=== PATIENT | female | born 1985 | race Caucasian/White ===

== ENCOUNTER 2020-09-26 13:14 | Emergency (ER) | payer OTHER, SELFPAY ==
[2020-09-26 13:33] VITALS: BP 108/75; PULSE 100; RESP 16; TEMP 37.3; O2SAT 99
--- NOTE | 2020-09-26 14:38 | ED.NAVMDI ---
HPI - Nausea/Vomiting/Diarrhea General Chief complaint: Nausea/Vomiting/Diarrhea Stated complaint: abd pain Time Seen by Provider: 09/26/20 14:18 Source: patient and RN notes reviewed Mode of arrival: ambulatory Limitations: no limitations History of Present Illness HPI Narrative: Patient presents today complaining of nausea, vomiting, diarrhea since 11:00 last night. Reports she vomited 7 times between 2300 and 3 AM. Patient has had multiple episodes of watery diarrhea as well. She had to salting crackers and water at 1230 this afternoon and has been able to keep them down. Denies any abdominal pain. States she is concerned she had some milk yesterday as well as some banana bread she later noted to have mold on it, so she does not know if she has a virus or food poisoning. MD elicited complaint: nausea, vomiting and diarrhea Related Data Home Medications Medication Instructions Recorded Confirmed labetalol 200 mg PO DAILY 09/26/20 09/26/20 levothyroxine [Synthroid] 112 mcg PO DAILY 09/26/20 09/26/20 sertraline 09/26/20 Allergies Allergy/AdvReac Type Severity Reaction Status Date / Time No Known Allergies Allergy Verified 09/26/20 13:47 Review of Systems Review of Systems: CONSTITUTIONAL: Denies body aches, fever, chills, or sweats. EYES: Denies visual changes, redness, or discharge. ENT: Denies rhinorrhea, congestion, sore throat, or otalgia. CARDIOVASCULAR: Denies chest pain, palpitations, or edema. RESPIRATORY: Denies cough or dyspnea. GASTROINTESTINAL: Denies abdominal pain. + Nausea, vomiting, diarrhea GENITOURINARY: Denies dysuria or hematuria. SKIN: Denies rash, itching, or wounds. MUSCULOSKELETAL: Denies back pain, joint pain, or myalgia. NEUROLOGIC: Denies headache, numbness, tingling, or weakness. PSYCH: Denies depression or anxiety. [facility] Social History Social History Gender identity (if verbalized by the patient): Female Comments At time of signature, I have reviewed and agree with nursing past medical, surgical, social and family history unless otherwise noted. Please see nursing chart for further information. There is no relevant family history pertinent to the presenting complaint Exam Narrative: GENERAL: Well-appearing, well-nourished, and in no acute distress. HEAD: Normocephalic, atraumatic. EYES: EOMI. No redness or drainage. Conjunctivae normal. ENT: Mucous membranes pink and moist. NECK: Normal AROM. CHEST: No respiratory distress. Clear to auscultation. HEART: Regular rate and rhythm. No murmur appreciated. Normal peripheral pulses. ABDOMEN: Soft, nontender, nondistended, normal active bowel sounds. MUSCULOSKELETAL: No bony tenderness. EXTREMITIES: Normal range of motion. No edema. SKIN: Warm, dry, no rash. Capillary refill normal. Normal skin turgor. NEURO: No focal deficits. Alert and oriented x3. Gait steady. PSYCH: Normal affect. No signs of depression or anxiety. Course Vital Signs Vital signs: Vital Signs Temperature 99.2 F 09/26/20 13:33 Pulse Rate 100 09/26/20 13:33 Respiratory Rate 16 09/26/20 13:33 Blood Pressure 108/75 09/26/20 13:33 Pulse Oximetry 99 09/26/20 13:33 Temperature 99.2 F 09/26/20 13:33 Pulse Rate 100 09/26/20 13:33 Respiratory Rate 16 09/26/20 13:33 Blood Pressure 108/75 09/26/20 13:33 Pulse Oximetry 99 09/26/20 13:33 Reviewed MDM - Nausea/Vomiting/Diarrhea Differential Diagnosis Differential diagnosis: Likely food poisoning, gastroenteritis and dehydration Critical Care Time Critical Care Time Critical Care Time: No Discharge Plan Discharge Clinical Impression: Nausea vomiting and diarrhea Patient Disposition: Home, Self-Care Condition: Stable Instructions: Acute Nausea and Vomiting (ED), Acute Diarrhea (ED) Additional Instructions: Please take the Zofran for nausea and vomiting. Drink fluids to have electroly
== END 2020-09-26 14:47 | disposition home or self-care (01) ==
PROVIDERS: Emergency Provider Nurse Practitioner; PCP Nurse Practitioner Adult Health
DX: R11.2 Nausea with vomiting, unspecified (principal); R19.7 Diarrhea, unspecified
CPT/HCPCS: 99203; G0463

== ENCOUNTER 2021-02-07 08:04 | Emergency (ER) | payer OTHER, SELFPAY ==
--- NOTE | 2021-02-07 08:14 | ED.URI ---
HPI - URI/Sore Throat General Chief Complaint: Upper Respiratory Infection Stated Complaint: sinus infection Time Seen by Provider: 02/07/21 08:22 Source: patient and RN notes reviewed Mode of arrival: ambulatory Limitations: no limitations History of Present Illness HPI Narrative: 35-year-old female presents with concern for close to 1 month history of nasal congestion, rhinorrhea, sinus pressure and drainage. She reports she was treated at the beginning of January for a sinus infection via teledoc with Augmentin. Reports she took the Augmentin as directed, symptoms improved but did not resolve. She reports she now has worsening right-sided sinus pressure, pain, facial swelling, swelling under her eye. Reports she is using Flonase, denies other [id number] intervention. She denies fever, body aches, chills, sweats MD elicited complaint: nasal congestion Related Data Home Medications Medication Instructions Recorded Confirmed labetalol 200 mg PO DAILY 09/26/20 02/07/21 levothyroxine [Synthroid] 112 mcg PO DAILY 09/26/20 02/07/21 Allergies Allergy/AdvReac Type Severity Reaction Status Date / Time No Known Allergies Allergy Verified 02/07/21 08:22 Review of Systems Review of Systems: CONSTITUTIONAL: Denies malaise, chills, sweats, or fever. EYES: Denies visual changes, redness, or discharge. ENT: Reports rhinorrhea, congestion, sinus pain, otalgia. Denies sore throat. CARDIOVASCULAR: Denies chest pain, palpitations, or edema. RESPIRATORY: Denies cough. Denies dyspnea. GASTROINTESTINAL: Denies abdominal pain, nausea, vomiting, diarrhea SKIN: Denies rash or itching. MUSCULOSKELETAL: Denies myalgia. NEUROLOGIC: Denies headache. All systems reviewed & are unremarkable except as noted in HPI and below PMFSH Social History Social History Gender identity (if verbalized by the patient): Female Comments At time of signature, agree with nursing past medical, surgical, social and family history. There is no relevant family history pertinent to the presenting complaint Exam Narrative: GENERAL: Well-appearing, well-nourished, and in no acute distress. HEAD: Normocephalic EYES: PERRLA, conjunctivae clear ENT: Nares clear, turbinates edematous and erythematous, sinus tenderness, yellow discharge. Mucous membranes moist. TM pearly pretty with dull light reflex bilaterally; no tragal tenderness. Oropharynx not erythematous without lesions. Tonsils not enlarged and without exudate, no drooling, no hoarseness, no trismus, uvula midline. NECK: Supple. No lymphadenopathy CHEST: Clear to auscultation, breath sounds equal. No wheezing, rhonchi, rales, or stridor. No respiratory distress, speaks in full sentences. HEART: Regular rate and rhythm. No murmur heard. SKIN: Warm, dry, no rash. NEURO: Alert and oriented x3. PSYCH: Normal mood and affect Course Course Emergency Course: Patient is aware of diagnosis, understands and agrees to treatment plan. Anticipatory guidance given. Patient agrees to follow-up as directed and is aware of reasons to seek care at the emergency department. Portions of this record may have been created with voice recognition software Vital Signs Vital signs: Reviewed. MDM - URI/Sore Throat MDM Narrative Medical decision making narrative: Differential diagnosis considered: Mata virus, strep pharyngitis, allergic rhinitis, upper respiratory tract infection, sinusitis, rhinosinusitis, nasopharyngitis. viral pharyngitis, otitis media, otitis externa, pneumonia, bronchitis, viral cough syndrome, viral syndrome, and influenza. Exam findings show no acute concerns or changes; patient is non-toxic appearing and is in no distress. Patient is appropriate for outpatient treatment and follow-up. Critical Care Time Critical Care Time Critical Care Time: No Discharge Plan Discharge Clinical Impression: Acute bacterial sinusitis Patient Disposit
[2021-02-07 08:15] VITALS: BP 136/90; PULSE 82; RESP 16; TEMP 36.3; O2SAT 99
[2021-02-07 08:17] VITALS: BP 136/90; PULSE 82; RESP 16; TEMP 36.3; O2SAT 99
== END 2021-02-07 08:35 | disposition home or self-care (01) ==
PROVIDERS: Emergency Provider Nurse Practitioner
DX: J01.90 Acute sinusitis, unspecified (principal); I10 Essential (primary) hypertension; E03.9 Hypothyroidism, unspecified
CPT/HCPCS: 99213; G0463

== ENCOUNTER 2021-03-24 08:04 | Emergency (ER) | payer OTHER, SELFPAY ==
--- NOTE | 2021-03-24 08:11 | ED.NAVMDI ---
HPI - Nausea/Vomiting/Diarrhea General Chief complaint: Nausea/Vomiting/Diarrhea Stated complaint: Throwing Up Time Seen by Provider: 03/24/21 08:15 Source: patient, RN notes reviewed and old records reviewed Mode of arrival: ambulatory Limitations: no limitations History of Present Illness HPI Narrative: 35-year-old female presents to the [facility] with complaints of nausea vomiting since midnight last night. Patient states I just need some IV fluids. denies any abdominal pain or chest pain. Denies fevers. Explained to patient we do not do IV fluids here, offered Zofran and home treatments or referred to ER. Patient stated she wanted to try Zofran and go home and rest. MD elicited complaint: nausea and vomiting Related Data Home Medications Medication Instructions Recorded Confirmed labetalol 200 mg PO DAILY 09/26/20 03/24/21 levothyroxine [Synthroid] 112 mcg PO DAILY 09/26/20 03/24/21 Allergies Allergy/AdvReac Type Severity Reaction Status Date / Time No Known Allergies Allergy Verified 02/07/21 08:22 Review of Systems Review of Systems: All systems reviewed & are unremarkable except as noted in HPI and below Constitutional: Constitutional: Reports no additional constitutional complaints, Denies chills and Denies fever(s) Eyes: Eyes: Reports no additional eye complaints ENT: Reports system reviewed and no additional complaints, except as documented Cardiovascular: Cardiovascular: Reports no additional cardiovascular complaints, Denies chest pain and Denies dyspnea Respiratory: Respiratory: Reports no additional respiratory complaints, Denies cough, Denies dyspnea and Denies wheezing Gastrointestinal: Gastrointestinal: Reports as per HPI, Denies abdominal pain, Denies bloating, Denies constipation, Reports diarrhea, Reports nausea and Reports vomiting Genitourinary: Genitourinary: Reports no additional female genitourinary complaints Musculoskeletal: Musculoskeletal: Reports no additional musculoskeletal complaints Integumentary/Breasts: Skin/Breast: Reports system reviewed and no additional complaints, except as docu Neurologic: Reports system reviewed and no additional complaints, except as documented Psychiatric: Psychiatric: Reports no additional psychiatric complaints Allergic/Immunologic: Allergic/Immunologic: Reports no additional allergic/immunologic complaints and Denies wheezing PMFSH Social History Social History Gender identity (if verbalized by the patient): Female Comments At the time of my signature, I reviewed and agree with the nursing past medical, surgical, social, and family history. There is no relevant family history pertinent to the patient complaint. Exam Const: General: healthy appearing, no acute distress and alert; No ill appearing Nutritional Appearance: well nourished and obese morbidly obese Orientation/consciousness: patient oriented x3 Limitations: no limitations HENMT: Head: normal to inspection Ears: external ears normal, TM's normal bilaterally and EAC's normal Eyes: Pupils: Equal, round and reactive pupils present Neck: Neck: normal visual inspection, no lymphadenopathy and no meningeal signs Chest: Chest palpation & inspection: normal inspection of the chest Resp: Effort & Inspection: normal respiratory effort and no use of accessory muscles Auscultation: clear to auscultation bilaterally, no crackles, no rales, no rhonchi and no wheezes Cardio: Rate: regular rate Rhythm: regular rhythm GI: GI Palp: Yes Soft to palpation, No Tenderness to palpation present (GI), No Guarding due to palpation present (GI) and No Rebound tenderness present Auscultation: normal bowel sounds : General: Yes no CVA tenderness Back/Spine/Pelvis: Back: no CVA tenderness Skin: General skin exam: normal color Rashes: no rashes Wounds: no wounds Neuro: General: patient oriented x3, moves all extremities, no meningeal sig
[2021-03-24 08:13] VITALS: BP 139/97; PULSE 118; RESP 16; TEMP 36.2; O2SAT 100
== END 2021-03-24 08:30 | disposition home or self-care (01) ==
PROVIDERS: Emergency Provider Nurse Practitioner
DX: K52.9 Noninfective gastroenteritis and colitis, unspecified (principal); I10 Essential (primary) hypertension; E03.9 Hypothyroidism, unspecified
CPT/HCPCS: 99213; G0463

== ENCOUNTER 2021-04-19 12:48 | Emergency (ER) | payer OTHER, SELFPAY ==
--- NOTE | 2021-04-19 12:55 | ED.URI ---
HPI - URI/Sore Throat General Chief Complaint: Upper Respiratory Infection Stated Complaint: uri Source: patient, family, RN notes reviewed and old records reviewed Mode of arrival: ambulatory Limitations: no limitations History of Present Illness HPI Narrative: 35-year-old female presents to the [facility] with ongoing sinusitis. Had ANETTE February 27, 2021 Called the teledoc and states that she described the symptoms, was started on doxycycline 5 days ago but states is not getting any better. MD elicited complaint: rhinorrhea and nasal congestion Related Data Home Medications Medication Instructions Recorded Confirmed labetalol 200 mg PO DAILY 09/26/20 03/24/21 levothyroxine [Synthroid] 112 mcg PO DAILY 09/26/20 03/24/21 doxycycline monohydrate 04/19/21 Allergies Allergy/AdvReac Type Severity Reaction Status Date / Time No Known Allergies Allergy Verified 02/07/21 08:22 Review of Systems Review of Systems: All systems reviewed & are unremarkable except as noted in HPI and below Constitutional: Constitutional: Reports no additional constitutional complaints, Denies chills, Denies fever(s) and Denies headache(s) Eyes: Eyes: Reports no additional eye complaints ENT: Reports as per HPI, Denies vertigo, Denies dizziness, Denies headache(s), Reports nasal congestion and Denies sore throat Comments: Rhinorrhea Cardiovascular: Cardiovascular: Reports no additional cardiovascular complaints, Denies chest pain, Denies syncope, Denies rapid heart rate and Denies dyspnea Respiratory: Respiratory: Reports no additional respiratory complaints, Denies cough, Denies dyspnea and Denies wheezing Gastrointestinal: Gastrointestinal: Reports no additional gastrointestinal complaints, Denies abdominal pain, Denies diarrhea, Denies nausea and Denies vomiting Musculoskeletal: Musculoskeletal: Reports no additional musculoskeletal complaints and Denies numbness Integumentary/Breasts: Skin/Breast: Reports system reviewed and no additional complaints, except as docu Neurologic: Reports system reviewed and no additional complaints, except as documented, Denies vertigo, Denies dizziness, Denies syncope, Denies headache(s), Denies focal weakness and Denies numbness Psychiatric: Psychiatric: Reports no additional psychiatric complaints Allergic/Immunologic: Allergic/Immunologic: Reports no additional allergic/immunologic complaints and Denies wheezing PMFSH Past Medical History Medical History (Updated 04/19/21 @ 19:33 by Leticia A. 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 There is no relevant family history pertinent to the patient complaint. Exam Const: General: cooperative, healthy appearing, no acute distress, well developed and alert Nutritional Appearance: well nourished and obese Orientation/consciousness: patient oriented x3 Limitations: no limitations HENMT: Head: normal to inspection Ears: external ears normal, TM's normal bilaterally and EAC's normal General nose exam: Normal nasal mucous membranes and turbinates present and Nasal discharge present clear bilateral Face and sinus: normal facial exam and sinus tenderness frontal Mouth: Yes Normal oral and palatal mucosa present Throat: posterior oropharynx normal, tonsils normal and uvula midline Eyes: Conjunctivae: conjunctivae normal Pupils: Equal, round and reactive pupils present Neck: Neck: normal visual inspection, no lymphadenopathy and no meningeal signs Chest: Chest palpation & inspection: normal inspection of the chest Resp: Effort & Inspection: normal respiratory effort and no use of accessory muscles Auscultation: clear to auscultation bilaterally, no crackles, no rale
[2021-04-19 12:56] VITALS: BP 137/61; PULSE 80; RESP 16; TEMP 37.1; O2SAT 99
== END 2021-04-19 13:22 | disposition home or self-care (01) ==
PROVIDERS: Emergency Provider Nurse Practitioner
DX: J32.9 Chronic sinusitis, unspecified (principal); Z86.16 Personal history of COVID-19; I10 Essential (primary) hypertension; E03.9 Hypothyroidism, unspecified
CPT/HCPCS: 99213; G0463

== ENCOUNTER → 2021-09-04 11:44 | Outpatient (CLI) | payer OTHER, SELFPAY ==
--- NOTE | ~2021-09-04 | CT_ITS ---
EXAMINATION: CT sinus wo con DATE: 09/04/2021 12:01 INDICATION: Recurrent sinus infections TECHNIQUE: Computed tomography (CT) of the paranasal sinuses was performed without contrast. Iterativ e reconstruction technique was employed. Exam dose: 275.58 mGy-cm total exam DLP. COMPARISON: None FINDINGS: Nasal septum is midline. Bilateral soft tissue prominence of the nasal turbinates, right gr eater than left. There is minimal new mucoperiosteal thickening of the left frontal sinus. The right frontal sinus is clear. There is prominent soft tissue thickening of the left ethmoid air cells. There is soft tissue thickening of the left maxillary ostium and infundibulum, without complete occlu abril. The right infundibulum appears narrowed and occluded by soft tissue. The right maxillary ostium is op acified. There is complete opacification of the right maxillary sinus. Moderately prominent mucosal periosteal thickening throughout the left maxillary sinus. The sphenoid sinuses are unremarkable. The mastoid air cells are normally developed and aerated bilaterally. IMPRESSION: Bilateral nasal turbinate soft tissue prominence, right greater than left Complete opacification right maxillary sinus, right maxillary ostium and right infundibulum Partial soft tissue opacification of left maxillary ostium and left infundibulum Moderate mucoperiosteal thickening of the left maxillary sinus Minimal mucoperiosteal thickening of the left frontal sinus Patchy soft tissue thickening of the left ethmoid air cells Reviewed, dictated and finalized at [facility] Reviewed, dictated and finalized at [facility] IMPRESSION: Bilateral nasal turbinate soft tissue prominence, right greater th an left Complete opacification right maxillary sinus, right maxillary ostium and right infundibulum Partial soft tissue opacification of left maxillary ostium and left infundibulu m Moderate mucoperiosteal thickening of the left maxillary sinus Minimal mucoperiosteal thickening of the left frontal sinus Patchy soft tissue thickening of the left ethmoid air cells
== END ==
PROVIDERS: PCP Hospitalist; Visit Provider Hospitalist
DX: J32.9 Chronic sinusitis, unspecified (principal)
CPT/HCPCS: 70486

== ENCOUNTER 2021-10-01 22:20 | Emergency (ER) | payer OTHER, SELFPAY ==
[2021-10-01 22:22] VITALS: BP 174/107; PULSE 83; RESP 16; TEMP 36.2; O2SAT 99
--- NOTE | 2021-10-01 22:47 | ED.EYEPROB ---
HPI - Eye Problem General Chief complaint: Eye Problems Stated complaint: Eye Swelling Time Seen by Provider: 10/01/21 22:30 History of Present Illness HPI Narrative: 36-year-old female presents emergency room secondary to swelling to both of her eyes. She states that this started an hour and half to 2 hours ago. She does have a history of some chronic sinus issues and was seen by ENT today and agreed to be scheduling sinus surgery. She states one of her sinuses is about 100% blocked and the other was about 75 to 80% blocked. She has been on a course of antibiotics recently. She been using steroid nasal spray. She never had a reaction like this before. The sclera on the left IV is extremely swollen. She also swelling to the right eye. She initially thought this could be related to her sinus issues. Denies any visual disturbance associated with this. He denies taking any new medications. Related Data Home Medications Medication Instructions Recorded Confirmed labetalol 200 mg tablet 200 mg PO DAILY 09/26/20 03/24/21 levothyroxine 112 mcg tablet 112 mcg PO DAILY 09/26/20 03/24/21 (Synthroid) Allergies Allergy/AdvReac Type Severity Reaction Status Date / Time No Known Allergies Allergy Verified 10/01/21 22:29 Review of Systems Review of Systems: CONSTITUTIONAL: Denies fever, chills, or sweats. EYES: Denies visual changes, redness, or discharge. Marked swelling to the sclera of both eyes left greater than right ENT: History of bilateral maxillary sinus issues. CARDIOVASCULAR: Denies chest pain, palpitations, or edema. RESPIRATORY: Denies cough or dyspnea. GASTROINTESTINAL: Denies abdominal pain, nausea, vomiting, or diarrhea. GENITOURINARY: Denies dysuria or hematuria. SKIN: Denies rash or itching. MUSCULOSKELETAL: Denies back pain, joint pain, or myalgia. NEUROLOGIC: Denies headache, numbness, or weakness. PSYCHIATRIC: Denies anxiety or depression. [facility] Past Medical History Medical History (Updated 10/01/21 @ 22:49 by Dilip Jordan DO) History of high blood pressure Sinusitis Thyroid disease Social History Social History (Updated 10/01/21 @ 22:50 by Dilip Jordan DO) Living arrangements: with family Occupation/Education: occupation Additional occupation/education comments: Works for [employer] Gender identity (if verbalized by the patient): Female Exam Narrative: APPEARANCE: Well appearing, no pain or distress, well-nourished. Head Normocephalic and atraumatic. EYES: PERRLA/EOMI, conjunctivae clear. Scleral edema is noted bilaterally the left greater than the right NOSE: Normal with no drainage EARS:TMS clear with Gilliam, with good light reflex. THROAT: Pharynx clear, no exudate. NECK: Supple. No adenopathy, no masses. RESPIRATORY: Airway patent, respirations nonlabored. Clear to auscultation bilaterally, no rales, rhonchi, wheezing. CARDIOVASCULAR: Regular rate and rhythm without murmurs, rubs, or gallops. ABDOMINAL: Soft, nontender, nondistended, no hepatosplenomegaly Musculoskeletal: Moves all extremities. Strength/ROM intact, No edema, No calf tenderness. NEURO: Alert. Cranial nerves II through XII intact. Normal gait. Good coordination. Nonfocal examination. SKIN:: Warm, dry. Normal Color PSYCHIATRIC: Normal affect/mood, normal interaction Course Vital Signs Vital signs: Vital Signs Temperature 97.1 F L 10/01/21 22:22 Pulse Rate 83 10/01/21 22:22 Respiratory Rate 16 10/01/21 22:22 Blood Pressure 174/107 H 10/01/21 22:22 Pulse Oximetry 99 10/01/21 22:22 Temperature 97.1 F L 10/01/21 22:22 Pulse Rate 83 10/01/21 22:22 Respiratory Rate 16 10/01/21 22:22 Blood Pressure 174/107 H 10/01/21 22:22 Pulse Oximetry 99 10/01/21 22:22 MDM - Eye Problem MDM Narrative Medical decision making narrative: Patient noted to have bilateral scrotal edema. Was told to put cool compresses to both of her eyes. Put on a course of Zyrtec as well as prednison
[2021-10-01 22:52] VITALS: BP 126/97; PULSE 96; RESP 18; O2SAT 99
== END 2021-10-01 22:53 | disposition home or self-care (01) ==
PROVIDERS: Emergency Provider Emergency Medicine; PCP Hospitalist
DX: T78.40XA Allergy, unspecified, initial encounter (principal); H57.89 Other specified disorders of eye and adnexa; I10 Essential (primary) hypertension; E07.9 Disorder of thyroid, unspecified
CPT/HCPCS: 99283

== ENCOUNTER 2022-01-13 11:01 | Emergency (ER) | payer OTHER, SELFPAY ==
[2022-01-13 11:10] VITALS: BP 138/80; PULSE 103; RESP 20; TEMP 37.6; O2SAT 99
--- NOTE | 2022-01-13 11:35 | ED.URI ---
HPI - URI/Sore Throat General Chief Complaint: Upper Respiratory Infection Stated Complaint: flu like sx Time Seen by Provider: 01/13/22 11:34 Source: patient and RN notes reviewed Mode of arrival: ambulatory Limitations: no limitations History of Present Illness HPI Narrative: 36-year-old female presents with concern for body aches, fever, runny nose, cough that started last night. Reports she has taken ibuprofen. She reports low appetite and some nausea MD elicited complaint: fever and cough Related Data Home Medications Medication Instructions Recorded Confirmed labetalol 200 mg tablet 200 mg PO DAILY 09/26/20 01/13/22 levothyroxine 112 mcg tablet 112 mcg PO DAILY 09/26/20 01/13/22 (Synthroid) montelukast 10 mg tablet 10 mg PO DAILY 01/13/22 01/13/22 Allergies Allergy/AdvReac Type Severity Reaction Status Date / Time No Known Allergies Allergy Verified 01/13/22 11:09 Review of Systems Review of Systems: CONSTITUTIONAL: Reports malaise, chills, sweats, or fever. EYES: Denies visual changes, redness, or discharge. ENT: Reports rhinorrhea, congestion, sinus pain, otalgia and sore throat. CARDIOVASCULAR: Denies chest pain, palpitations, or edema. RESPIRATORY: Reports cough. Denies dyspnea. GASTROINTESTINAL: Denies abdominal pain, vomiting, diarrhea. Reports low appetite and nausea SKIN: Denies rash or itching. MUSCULOSKELETAL: Reports myalgia. NEUROLOGIC: Reports headache. All systems reviewed & are unremarkable except as noted in HPI and below PMFSH Past Medical History Medical History (Updated 01/13/22 @ 11:42 by Leticia Hunter NP) History of high blood pressure Sinusitis Thyroid disease Social History Social History (Updated 10/01/21 @ 22:50 by Dilip Jordan DO) Additional occupation/education comments: Works for [employer] Gender identity (if verbalized by the patient): Female Comments At time of signature, agree with nursing past medical, surgical, social and family history. There is no relevant family history pertinent to the presenting complaint Exam Narrative: GENERAL: Nontoxic-appearing and in no acute distress. HEAD: Normocephalic EYES: PERRLA, conjunctivae clear ENT: Nares clear, turbinates edematous and erythematous, clear discharge. Mucous membranes moist. TM pearly pretty with dull light reflex bilaterally; no tragal tenderness. Oropharynx not erythematous without lesions. Tonsils not enlarged and without exudate, no drooling, no hoarseness, no trismus, uvula midline. NECK: Supple. No lymphadenopathy CHEST: Clear to auscultation, breath sounds equal. No wheezing, rhonchi, rales, or stridor. No respiratory distress, speaks in full sentences. HEART: Regular rate and rhythm. No murmur heard. SKIN: Warm, dry, no rash. NEURO: Alert and oriented x3. PSYCH: Normal mood and affect Course Course Emergency Course: Patient is aware of diagnosis, understands and agrees to treatment plan. Anticipatory guidance given. Patient agrees to follow-up as directed and is aware of reasons to seek care at the emergency department. Portions of this record may have been created with voice recognition software Level of Care: Express Care Visit Vital Signs Vital signs: Reviewed. MDM - URI/Sore Throat MDM Narrative Medical decision making narrative: Differential diagnosis considered: Mata virus, strep pharyngitis, allergic rhinitis, upper respiratory tract infection, sinusitis, rhinosinusitis, nasopharyngitis. viral pharyngitis, otitis media, otitis externa, pneumonia, bronchitis, viral cough syndrome, viral syndrome, and influenza. Exam findings show no acute concerns or changes; patient is non-toxic appearing and is in no distress. Patient is appropriate for outpatient treatment and follow-up. Lab Data Attestation: I reviewed the patient's lab results. Labs: Influenza A Screen Positive Reference Range: Negative Influenza B Scre
== END 2022-01-13 11:45 | disposition home or self-care (01) ==
PROVIDERS: Emergency Provider Nurse Practitioner
DX: J10.1 Influenza due to other identified influenza virus with other respiratory manifestations (principal); Z20.822 Contact with and (suspected) exposure to COVID-19; I10 Essential (primary) hypertension
CPT/HCPCS: 87081; 87426; 87804; 87880; 99213; C9803; G0463

== ENCOUNTER 2022-01-23 08:14 | Emergency (ER) | payer OTHER, SELFPAY ==
--- NOTE | 2022-01-23 08:25 | ED.EYEPROB ---
HPI - Eye Problem General Chief complaint: Eye Problems Stated complaint: right eye watery Time Seen by Provider: 01/23/22 08:33 Source: patient and RN notes reviewed Mode of arrival: ambulatory Limitations: no limitations History of Present Illness HPI Narrative: 36-year-old female presents concern for right eye redness, drainage, matted shut in the morning. Reports symptoms started 1 week ago. Reports she diagnosed with influenza 1 week ago. She denies eye pain, vision changes. MD chief complaint: eye redness Related Data Home Medications Medication Instructions Recorded Confirmed levothyroxine 112 mcg tablet 112 mcg PO DAILY 09/26/20 01/23/22 (Synthroid) montelukast 10 mg tablet 10 mg PO DAILY 01/13/22 01/23/22 amlodipine 5 mg tablet 5 mg PO DAILY 01/23/22 01/23/22 Allergies Allergy/AdvReac Type Severity Reaction Status Date / Time No Known Allergies Allergy Verified 01/23/22 08:23 Review of Systems Review of Systems: CONSTITUTIONAL: Denies malaise, chills, sweats, or fever. EYES: Denies visual changes. Reports right eye redness, discharge. ENT: Denies rhinorrhea, congestion, sinus pain, otalgia or sore throat. SKIN: Denies rash or itching. NEUROLOGIC: Denies numbness, weakness, or headache. PSYCHIATRIC: Denies anxiety or depression. All systems reviewed & are unremarkable except as noted in HPI and below PMFSH Past Medical History Medical History (Updated 01/23/22 @ 08:38 by Leticia Hunter NP) History of high blood pressure Sinusitis Thyroid disease Social History Social History (Updated 10/01/21 @ 22:50 by Dilip Jordan DO) Additional occupation/education comments: Works for [employer] Gender identity (if verbalized by the patient): Female Comments At time of signature, agree with nursing past medical, surgical, social and family history. There is no relevant family history pertinent to the presenting complaint Exam Narrative: GENERAL: Well-appearing, well-nourished, and in no acute distress. HEAD: Normocephalic, atraumatic. EYES: PERRLA, sclera clear, and EOMI. No nystagmus. Bilateral conjunctivae injected. Upper and lower eyelid unremarkable, no periorbital edema noted ENT: Nares clear, turbinates pink, no rhinorrhea or epistaxis. Mucous membranes moist. TM pearly pretty with sharp light reflex bilaterally; no tragal tenderness. NECK: Supple. CHEST: No respiratory distress. Speaks in full sentences. HEART: Regular rate and rhythm. SKIN: Warm, dry, no visible rash. NEURO: Alert and oriented x3. PSYCH: Normal mood and affect Course Course Emergency Course: Patient is aware of diagnosis, understands and agrees to treatment plan. Anticipatory guidance given. Patient agrees to follow-up as directed and is aware of reasons to seek care at the emergency department. Portions of this record may have been created with voice recognition software Level of Care: Express Care Visit Vital Signs Vital signs: Reviewed. MDM - Eye Problem MDM Narrative Medical decision making narrative: Consideration of the following conditions may be warranted for the presenting problem, they are not final diagnoses: Bacterial conjunctivitis, allergic conjunctivitis, viral conjunctivitis, foreign body, blepharitis, chalazion, hordeolum, corneal abrasion, preseptal cellulitis, orbital cellulitis. No evidence of proptosis, ophthalmoplegia, vision loss, pain with eye movement. Exam findings show no acute concerns or changes; patient is non-toxic appearing and is in no distress. Patient is appropriate for outpatient treatment and follow-up. Critical Care Time Critical Care Time Critical Care Time: No Discharge Plan Discharge Clinical Impression: Conjunctivitis Patient Disposition: Home, Self-Care Condition: Stable Instructions: Conjunctivitis (ED) Additional Instructions: Do not touch or rub your eye. Use a warm or cool washcloth on your eye for comfort Use eyedrops as directed Practic
[2022-01-23 08:28] VITALS: BP 131/84; PULSE 99; RESP 16; TEMP 36.8; O2SAT 99
== END 2022-01-23 08:47 | disposition home or self-care (01) ==
PROVIDERS: Emergency Provider Nurse Practitioner; PCP Hospitalist
DX: H10.9 Unspecified conjunctivitis (principal); I10 Essential (primary) hypertension; E03.9 Hypothyroidism, unspecified; Z86.16 Personal history of COVID-19
CPT/HCPCS: 99213; G0463

== ENCOUNTER 2022-08-30 08:17 | Emergency (ER) | payer OTHER, SELFPAY ==
[2022-08-30 08:30] VITALS: BP 137/90; PULSE 92; RESP 16; TEMP 36.8; O2SAT 100
--- NOTE | 2022-08-30 08:49 | ED.URI ---
HPI - URI/Sore Throat General Chief Complaint: Upper Respiratory Infection Stated Complaint: congestion,pressure left side Time Seen by Provider: 08/30/22 08:41 Source: patient and RN notes reviewed Mode of arrival: ambulatory Limitations: no limitations History of Present Illness HPI Narrative: Patient presents today with a one-week history of nasal congestion and sinus pressure, rhinorrhea. Denies fever. History of chronic sinusitis with polyp surgery last year. She takes Singulair, use a steroid nasal spray and Neti pot and has also been using Mucinex. Related Data Home Medications Medication Instructions Recorded Confirmed levothyroxine 112 mcg tablet 112 mcg PO DAILY 09/26/20 08/30/22 (Synthroid) montelukast 10 mg tablet 10 mg PO DAILY 01/13/22 08/30/22 amlodipine 5 mg tablet 5 mg PO DAILY 01/23/22 08/30/22 fluticasone propionate 93 See Rx Instructions .Route .COMPLEX 08/30/22 08/30/22 mcg/actuation breath activated aerosol (Xhance) Allergies Allergy/AdvReac Type Severity Reaction Status Date / Time No Known Allergies Allergy Verified 08/30/22 08:32 Review of Systems Review of Systems: CONSTITUTIONAL: Denies body aches, fever, chills, or sweats. EYES: Denies visual changes, redness, or discharge. ENT: Denies sore throat, or otalgia.+ rhinorrhea, congestion, sinus pressure CARDIOVASCULAR: Denies chest pain, palpitations, or edema. RESPIRATORY: Denies cough or dyspnea. GASTROINTESTINAL: Denies abdominal pain, nausea, vomiting, or diarrhea. GENITOURINARY: Denies dysuria or hematuria. SKIN: Denies rash, itching, or wounds. MUSCULOSKELETAL: Denies back pain, joint pain, or myalgia. NEUROLOGIC: Denies headache, numbness, tingling, or weakness. PSYCH: Denies depression or anxiety. [facility] Past Medical History Medical History History of high blood pressure Sinusitis Thyroid disease Social History Social History Living arrangements: with family Occupation/Education: occupation Additional occupation/education comments: Works for [employer] Gender identity (if verbalized by the patient): Female Comments At time of signature, I have reviewed and agree with nursing past medical, surgical, social and family history unless otherwise noted. Please see nursing chart for further information. There is no relevant family history pertinent to the presenting complaint Exam Narrative: GENERAL: Well-appearing, well-nourished, and in no acute distress. HEAD: Normocephalic, atraumatic. EYES: EOMI. No redness or drainage. Conjunctivae normal. ENT: Mucous membranes pink and moist. Nares clear. Bilateral nasal turbinates are slightly erythematous and edematous. Rhinorrhea present. Mild tenderness of the bilateral maxillary sinuses. TMs normal bilaterally. Throat normal. Uvula midline. NECK: Normal AROM. Supple. No lymphadenopathy. CHEST: No respiratory distress. Clear to auscultation. HEART: Regular rate and rhythm. No murmur appreciated. Normal peripheral pulses. EXTREMITIES: Normal range of motion. No edema. SKIN: Warm, dry, no rash. Capillary refill normal. Normal skin turgor. NEURO: No focal deficits. Alert and oriented x3. Gait steady. PSYCH: Normal affect. No signs of depression or anxiety. Course Course Level of Care: Express Care Visit Vital Signs Vital signs: Vital Signs Temperature 98.2 F 08/30/22 08:30 Pulse Rate 92 08/30/22 08:30 Respiratory Rate 16 08/30/22 08:30 Blood Pressure 137/90 08/30/22 08:30 Pulse Oximetry 100 08/30/22 08:30 Oxygen Delivery Room Air 08/30/22 08:30 Temperature 98.2 F 08/30/22 08:30 Pulse Rate 92 08/30/22 08:30 Respiratory Rate 16 08/30/22 08:30 Blood Pressure 137/90 08/30/22 08:30 Pulse Oximetry 100 08/30/22 08:30 Oxygen Delivery Room Air 08/30/22 08:30 Reviewed. Pt has been inst
== END 2022-08-30 08:58 | disposition home or self-care (01) ==
PROVIDERS: Emergency Provider Nurse Practitioner
DX: J01.00 Acute maxillary sinusitis, unspecified (principal); I10 Essential (primary) hypertension; E03.9 Hypothyroidism, unspecified; Z86.16 Personal history of COVID-19
CPT/HCPCS: 99213; G0463

== ENCOUNTER 2023-03-09 15:49 | Emergency (ER) | payer OTHER, SELFPAY ==
[2023-03-09 16:07] VITALS: BP 132/81; PULSE 97; RESP 16; TEMP 38.7; O2SAT 99
--- NOTE | 2023-03-09 16:07 | ED.FEMALEGU ---
HPI - Female Genitourinary General Chief complaint: Urogenital-Female Stated complaint: pain/pressure lower abdomen Time Seen by Provider: 03/09/23 16:07 Source: patient Mode of arrival: ambulatory Limitations: no limitations History of Present Illness HPI Narrative: 37 yo F presents with c/o lower ABD pain for 3 days following IVF egg retrieval. States she called clinic and was told only concerned if pt had fever. States temp 99F. Pain worse with movement and when gets up in the morning ABD feels tight and has to roll out of bed. Having normal BMs. decreased urination. No dysuria. Denies N/v/D. hx of ovarian torsion 2018. all systems reviewed and negativ except as noted above. Related Data Home Medications Medication Instructions Recorded Confirmed levothyroxine 112 mcg tablet 112 mcg PO DAILY 09/26/20 03/09/23 (Synthroid) montelukast 10 mg tablet 10 mg PO DAILY 01/13/22 03/09/23 amlodipine 5 mg tablet 5 mg PO DAILY 01/23/22 03/09/23 fluticasone propionate 93 See Rx Instructions .Route .COMPLEX 08/30/22 03/09/23 mcg/actuation breath activated aerosol (Xhance) Allergies Allergy/AdvReac Type Severity Reaction Status Date / Time No Known Allergies Allergy Verified 03/09/23 15:58 Review of Systems Review of Systems: CONSTITUTIONAL: Denies fever, chills, or sweats. EYES: Denies visual changes, redness, or discharge. ENT: Denies rhinorrhea, congestion, sore throat, or otalgia. CARDIOVASCULAR: Denies chest pain, palpitations, or edema. RESPIRATORY: Denies cough or dyspnea. GASTROINTESTINAL: reports abdominal pain. Denies nausea, vomiting, or diarrhea. GENITOURINARY: Denies dysuria or hematuria. reports decreased urination SKIN: Denies rash or itching. MUSCULOSKELETAL: Denies back pain, joint pain, or myalgia. NEUROLOGIC: Denies headache, numbness, or weakness. PSYCHIATRIC: Denies anxiety or depression. All other systems reviewed are negative, except as documented in HPI. [facility] Past Medical History Medical History History of high blood pressure Sinusitis Thyroid disease Social History Social History Living arrangements: with family Occupation/Education: occupation Additional occupation/education comments: Works for [employer] Gender identity (if verbalized by the patient): Female Comments At time of signature, agree with nursing past medical, surgical, social and family history. There is no relevant family history pertinent to the presenting complaint. Exam Narrative: GENERAL: This is a well-nourished, well-developed patient, in no apparent distress. HEAD: normocephalic, atraumatic. EYES: PERRL. Sclera clear/white. Vision is grossly intact. EARS: External ears normal NOSE: External nose normal NECK: Neck supple, non-tender without lymphadenopathy, masses or thyromegaly. CARDIOVASCULAR: Regular rate and rhythm without murmurs, gallops, or rubs. RESPIRATORY: Clear to auscultation. Breath sounds equal bilaterally. No wheezes, rales, or rhonchi. GASTROINTESTINAL: Abdomen soft, umbilical tenderness. Bowel sounds are active. No hepato-splenomegaly, or palpable masses. No guarding. SKIN: warm, Dry, intact with no suspicious lesions or rash, good texture and turgor. NEURO: awake, alert, and oriented to person, place and time. There were no obvious focal neurologic abnormalities. EXTREMITIES: No joint tenderness, effusion, or edema noted. Course Course Level of Care: Express Care Visit Vital Signs Vital signs: Reviewed MDM - Female Genitourinary MDM Narrative Medical decision making narrative: recommend pt go to ER for transvaginal ultrasound to rule out ovarian torsion/abscess. had recent IVF egg retrieval with pain since. pt does not feel necessary. wants to take abx for UTI. Patient is aware of diagnosis, understands and agrees to treatment plan. Anticip
== END 2023-03-09 16:25 | disposition left against medical advice (07) ==
PROVIDERS: Emergency Provider Nurse Practitioner Family
DX: N39.0 Urinary tract infection, site not specified (principal); B95.1 Streptococcus, group B, as the cause of diseases classified elsewhere; I10 Essential (primary) hypertension; E03.9 Hypothyroidism, unspecified
CPT/HCPCS: 81003; 87077; 87086; 87088; 99213; G0463

== ENCOUNTER 2023-07-11 15:59 | Emergency (ER) | payer OTHER, SELFPAY ==
[2023-07-11 16:19] VITALS: BP 151/97; PULSE 80; RESP 18; TEMP 36.5; O2SAT 98
--- NOTE | 2023-07-11 16:43 | ED.URI ---
HPI - URI/Sore Throat General Chief Complaint: Upper Respiratory Infection Stated Complaint: Sinus issues Time Seen by Provider: 07/11/23 16:35 Source: patient and RN notes reviewed Mode of arrival: ambulatory Limitations: no limitations History of Present Illness HPI Narrative: Patient presents today with a 2 week history of nasal congestion, postnasal drip, sore throat. History of chronic sinusitis and follow up removal. She is on a regimen of Flonase, Singulair, and a Neti pot, which has been helping her quite well. She last saw her ENT just prior to onset of symptoms. Related Data Home Medications Medication Instructions Recorded Confirmed levothyroxine 112 mcg tablet 112 mcg PO DAILY 09/26/20 07/11/23 (Synthroid) montelukast 10 mg tablet 10 mg PO DAILY 01/13/22 07/11/23 amlodipine 5 mg tablet 5 mg PO DAILY 01/23/22 07/11/23 fluticasone propionate 93 See Rx Instructions .Route .COMPLEX 08/30/22 07/11/23 mcg/actuation breath activated aerosol (Xhance) Allergies Allergy/AdvReac Type Severity Reaction Status Date / Time No Known Allergies Allergy Verified 07/11/23 16:07 Review of Systems Review of Systems: CONSTITUTIONAL: Denies body aches, fever, chills, or sweats. EYES: Denies visual changes, redness, or discharge. ENT: Denies rhinorrhea, or otalgia.+ congestion, sore throat, postnasal drip CARDIOVASCULAR: Denies chest pain, palpitations, or edema. RESPIRATORY: Denies cough or dyspnea. GASTROINTESTINAL: Denies abdominal pain, nausea, vomiting, or diarrhea. GENITOURINARY: Denies dysuria or hematuria. SKIN: Denies rash, itching, or wounds. MUSCULOSKELETAL: Denies back pain, joint pain, or myalgia. NEUROLOGIC: Denies headache, numbness, tingling, or weakness. PSYCH: Denies depression or anxiety. [facility] Past Medical History Medical History History of high blood pressure Sinusitis Thyroid disease Social History Social History Living arrangements: with family Occupation/Education: occupation Additional occupation/education comments: Works for [employer] Gender identity (if verbalized by the patient): Female Comments At time of signature, I have reviewed and agree with nursing past medical, surgical, social and family history unless otherwise noted. Please see nursing chart for further information. There is no relevant family history pertinent to the presenting complaint Exam Narrative: GENERAL: Mildly ill appearing, well-nourished, and in no acute distress. HEAD: Normocephalic, atraumatic. EYES: EOMI. No redness or drainage. Conjunctivae normal. ENT: Mucous membranes pink and moist. Nares congested rhinorrhea. Bilateral nasal turbinates are erythematous and edematous. Bilateral maxillary sinus tenderness. TMs normal bilaterally. Throat normal. Uvula midline. NECK: Normal AROM. Supple. No lymphadenopathy. CHEST: No respiratory distress. Clear to auscultation. HEART: Regular rate and rhythm. No murmur appreciated. EXTREMITIES: Normal range of motion. No edema. SKIN: Warm, dry, no rash. Capillary refill normal. Normal skin turgor. NEURO: No focal deficits. Alert and oriented x3. Gait steady. PSYCH: Normal affect. No signs of depression or anxiety. Course Course Level of Care: Express Care Visit Vital Signs Vital signs: Vital Signs Temperature 97.7 F 07/11/23 16:19 Pulse Rate 80 07/11/23 16:19 Respiratory Rate 18 07/11/23 16:19 Blood Pressure 151/97 H 07/11/23 16:19 Pulse Oximetry 98 07/11/23 16:19 Oxygen Delivery Room Air 07/11/23 16:19 Temperature 97.7 F 07/11/23 16:19 Pulse Rate 80 07/11/23 16:19 Respiratory Rate 18 07/11/23 16:19 Blood Pressure 151/97 H 07/11/23 16:19 Pulse Oximetry 98 07/11/23 16:19 Oxygen Delivery Room Air 07/11/23 16:19 Reviewed MDM - URI/Sore Throat MDM Narrative Medical
== END 2023-07-11 16:50 | disposition home or self-care (01) ==
PROVIDERS: Emergency Provider Nurse Practitioner
DX: J01.00 Acute maxillary sinusitis, unspecified (principal); I10 Essential (primary) hypertension
CPT/HCPCS: 87081; 87880; 99213; G0463

== ENCOUNTER 2024-01-15 12:08 | Emergency (ER) | payer OTHER, SELFPAY ==
[2024-01-15 12:18] VITALS: BP 154/92; PULSE 91; RESP 20; TEMP 36.9; O2SAT 99
[2024-01-15 12:27] VITALS: BP 154/92; PULSE 91; RESP 20; TEMP 36.9; O2SAT 99
--- NOTE | 2024-01-15 12:35 | ED.URI ---
HPI - URI/Sore Throat General Chief Complaint: Upper Respiratory Infection Stated Complaint: Sinus/Cough Time Seen by Provider: 01/15/24 12:26 Source: patient and RN notes reviewed Mode of arrival: ambulatory Limitations: no limitations History of Present Illness HPI Narrative: Patient presents today with a 2 week history of nasal congestion and sinus pressure, postnasal drip, headache, productive cough. Cough is worse in the mornings and improves through the day. Denies shortness of breath, chest pain, fever. Patient does have chronic sinusitis and is followed by ENT. She does have a sinus regimen of a Neti pot TID, in 2 nasal sprays as well as Singulair. She has been using these as prescribed. Her last episode of acute sinusitis was in June. She was on doxycycline last month after and IUD placement. Related Data Home Medications Medication Instructions Recorded Confirmed levothyroxine 112 mcg tablet 112 mcg PO DAILY 09/26/20 01/15/24 (Synthroid) montelukast 10 mg tablet 10 mg PO DAILY 01/13/22 01/15/24 amlodipine 5 mg tablet 5 mg PO DAILY 01/23/22 01/15/24 fluticasone propionate 93 See Rx Instructions .Route .COMPLEX 08/30/22 01/15/24 mcg/actuation breath activated aerosol (Xhance) phentermine 15 mg capsule 15 mg PO DAILY 01/15/24 01/15/24 Allergies Allergy/AdvReac Type Severity Reaction Status Date / Time No Known Allergies Allergy Verified 01/15/24 12:10 Review of Systems Review of Systems: CONSTITUTIONAL: Denies body aches, fever, chills, or sweats. EYES: Denies visual changes, redness, or discharge. ENT: Denies rhinorrhea, sore throat, or otalgia.+ congestion, postnasal drip CARDIOVASCULAR: Denies chest pain, palpitations, or edema. RESPIRATORY: Denies dyspnea.+ headache GASTROINTESTINAL: Denies abdominal pain, nausea, vomiting, or diarrhea. GENITOURINARY: Denies dysuria or hematuria. SKIN: Denies rash, itching, or wounds. MUSCULOSKELETAL: Denies back pain, joint pain, or myalgia. NEUROLOGIC: Denies numbness, tingling, or weakness.+ headache PSYCH: Denies depression or anxiety. [facility] Past Medical History Medical History History of high blood pressure Sinusitis Thyroid disease Social History Social History Living arrangements: with family Occupation/Education: occupation Additional occupation/education comments: Works for [employer] Gender identity (if verbalized by the patient): Female Comments At time of signature, I have reviewed and agree with nursing past medical, surgical, social and family history unless otherwise noted. Please see nursing chart for further information. There is no relevant family history pertinent to the presenting complaint Exam Narrative: GENERAL: Mildly ill-appearing, well-nourished, and in no acute distress. HEAD: Normocephalic, atraumatic. EYES: EOMI. No redness or drainage. Conjunctivae normal. ENT: Mucous membranes pink and moist. Nares congested with rhinorrhea. TMs normal bilaterally. Throat normal. Uvula midline. NECK: Normal AROM. Supple. No lymphadenopathy. CHEST: No respiratory distress. Clear to auscultation. HEART: Regular rate and rhythm. No murmur appreciated. EXTREMITIES: Normal range of motion. No edema. SKIN: Warm, dry, no rash. Capillary refill normal. Normal skin turgor. NEURO: No focal deficits. Alert and oriented x3. Gait steady. PSYCH: Normal affect. No signs of depression or anxiety. Course Course Level of Care: Express Care Visit Vital Signs Vital signs: Vital Signs Temperature 98.4 F 01/15/24 12:18 Pulse Rate 91 01/15/24 12:18 Respiratory Rate 20 01/15/24 12:18 Blood Pressure 154/92 H 01/15/24 12:18 Pulse Oximetry 99 01/15/24 12:18 Oxygen Delivery Room Air 01/15/24 12:18 Temperature 98.4 F 01/15/24 12:27 Pulse Rate 91 01/15/24 12:27 Respiratory Rate 20 01/15/24 12:27 Blood Pressure 154/92 H 01/15/24 12:27 Pulse Oximetry 99 01/15/24 12:27 Oxygen Delivery Room Air 01/15/24 12:27 Reviewed MDM - URI/Sore Throat MDM Narrative Medical decision making narrative: Patient will be treated for acute on chronic sinusitis and will be treated with Augmentin and methylprednisolone. She will continue with her sinus regimen as prescribed by her ENT. Patient agrees with plan. Anticipatory guidance given. Differential Diagnosis Differential diagnosis: Likely upper respiratory infection, sinusitis, viral infection and bronchitis Critical Care Time Critical Care Time Critical Care Time: No Discharge Plan Discharge Clinical Impression: Acute bacterial sinusitis Patient Disposition: Home, Self-Care Condition: Stable Instructions: Antibiotic Form, Sinusitis (ED) Additional Instructions: Please take all medications as prescribed. Continue your sinus regimen as prescribed by your ENT. Follow-up in 3-4 days if symptoms are not improving. Your blood pressure was elevated above 120/80 today at Urgent Care. This puts you above the threshold for follow up. Please schedule a followup visit with your personal physician as soon as possible, for further evaluation and treatment. Even blood pressure exceeding 120/80 may indicate pre-hypertension. Prescriptions: New methylprednisolone [Medrol (Wang)] 4 mg tablets,dose pack See Rx Instructions .ROUTE .COMPLEX Qty: 21 0RF Rx Instructions: orally per package directions amoxicillin-pot clavulanate 875-125 mg tablet 1 tablet PO Q12H 7 Days Qty: 14 0RF No Action montelukast 10 mg tablet 10 mg PO DAILY amlodipine 5 mg tablet 5 mg PO DAILY Xhance 93 mcg/actuation aerosol breath activated See Rx Instructions .ROUTE .COMPLEX Rx Instructions: Rx phentermine 15 mg capsule 15 mg PO DAILY levothyroxine [Synthroid] 112 mcg Tablet 112 mcg PO DAILY Follow-up/Referrals: Alonzo,MD Yony [Primary Care Provider] - Time of Disposition: 12:39
== END 2024-01-15 12:45 | disposition home or self-care (01) ==
PROVIDERS: Emergency Provider Nurse Practitioner; PCP Hospitalist
DX: J01.90 Acute sinusitis, unspecified (principal); I10 Essential (primary) hypertension; E07.9 Disorder of thyroid, unspecified
CPT/HCPCS: 99213; G0463